=== PATIENT | female | born 1970 ===

== ENCOUNTER → 2021-11-19 08:13 | Outpatient (BNVA) | payer OTHER, SELFPAY | PROVIDERS: Visit Provider Psychiatry & Neurology Neurology | DX: G43.909 Migraine, unspecified, not intractable, without status migrainosus (principal); G47.9 Sleep disorder, unspecified | CPT/HCPCS: 99212 ==

== ENCOUNTER → 2022-03-22 09:59 | Outpatient (BNVA) | payer OTHER, SELFPAY | PROVIDERS: PCP Nurse Practitioner Family; Visit Provider Psychiatry & Neurology Neurology | DX: G43.909 Migraine, unspecified, not intractable, without status migrainosus (principal); G47.9 Sleep disorder, unspecified; G51.0 Bell's palsy; M54.2 Cervicalgia; Z79.899 Other long term (current) drug therapy | CPT/HCPCS: 99212 ==

== ENCOUNTER → 2022-06-06 08:27 | Outpatient (BNVA) | payer OTHER, SELFPAY | PROVIDERS: PCP Nurse Practitioner Family; Visit Provider Nurse Practitioner Family | DX: G51.0 Bell's palsy (principal); G43.909 Migraine, unspecified, not intractable, without status migrainosus; G47.9 Sleep disorder, unspecified; M54.2 Cervicalgia; E11.9 Type 2 diabetes mellitus without complications; I10 Essential (primary) hypertension; F32.A Depression, unspecified; Z79.899 Other long term (current) drug therapy | CPT/HCPCS: 99212 ==

== ENCOUNTER → 2022-10-23 13:58 | Outpatient (BNVA) | payer OTHER, SELFPAY | PROVIDERS: PCP Nurse Practitioner Family; Visit Provider Nurse Practitioner Family | DX: G51.0 Bell's palsy (principal); G43.909 Migraine, unspecified, not intractable, without status migrainosus; G47.9 Sleep disorder, unspecified; M54.2 Cervicalgia | CPT/HCPCS: 99212 ==

== ENCOUNTER → 2023-02-21 14:14 | Outpatient (BNVA) | payer OTHER, SELFPAY | PROVIDERS: PCP Nurse Practitioner Family; Visit Provider Nurse Practitioner Family | DX: G43.909 Migraine, unspecified, not intractable, without status migrainosus (principal); G47.9 Sleep disorder, unspecified; M54.2 Cervicalgia | CPT/HCPCS: 99212 ==

== ENCOUNTER → 2023-03-19 14:59 | Outpatient (BNVA) | payer OTHER, SELFPAY | PROVIDERS: PCP Nurse Practitioner Family; Visit Provider Nurse Practitioner Family | DX: G43.909 Migraine, unspecified, not intractable, without status migrainosus (principal); M54.2 Cervicalgia; G47.9 Sleep disorder, unspecified; Z79.899 Other long term (current) drug therapy | CPT/HCPCS: 99211 ==

== ENCOUNTER 2024-06-08 14:44 | Outpatient (AMB) | payer OTHER, SELFPAY ==
--- NOTE | 2024-06-08 15:05 | MHC.OFFVIS ---
Vital Signs 06/08/24 15:08 Height 4 ft 11 in Weight 150 lb BMI 30.3 BP 114/76 Blood Pressure Location Rt brachial Position Sitting Pulse 82 Pulse Source Pulse Oximeter Pulse Oximetry (%) 99 Oxygen Delivery Method Room Air Intake Visit Reasons: 6m F/u for Agudelo's Palsy Intake Note: Patient presents for complex migraine and bells palsy Allergies morphine Allergy (Severe, Verified 06/08/24 15:08) Numbness aspirin Adverse Reaction (Severe, Verified 06/08/24 15:08) Stomach Upset flu shut Allergy (Severe, Uncoded 06/08/24 15:08) severe swelling Medication List - Last Reconciled 06/08/24 by ALEX Thacker blood sugar diagnostic (FreeStyle Lite Strips) As directed bupropion HCl XL 300 mg PO QAM cholecalciferol (vitamin D3) 25 mcg PO DAILY citalopram 40 mg PO DAILY clopidogrel 75 mg PO DAILY cyclobenzaprine 5 mg PO BEDTIME fluticasone propion-salmeterol 250-50 mcg/dose 1 ea inhalation BID gabapentin 800 mg PO TID galcanezumab-gnlm (Emgality) 120 mg subcut ONCE 1 month hydroxyzine HCl 25 mg PO TID insulin aspart U-100 (Novolog FlexPen U-100 Insulin aspart) subcut lancets (FreeStyle Lancets) As directed lisinopril 5 mg PO DAILY lorazepam 1 mg PO DAILY PRN metoprolol succinate ER 25 mg PO DAILY omeprazole 20 mg PO BID oxycodone 0 mg PO riboflavin (vitamin B2) 400 mg PO DAILY simvastatin 40 mg PO BEDTIME sulfamethoxazole-trimethoprim 800-160 mg 1 tab PO BID topiramate 50 mg PO BID 30 days trazodone 200 mg PO BEDTIME ziprasidone HCl 40 mg PO BID HPI Comments Details: 54-yr-old female presents for Er f/u visit. Pt had [facility] ER on 06/01/24. Pt states she was having worsening headache and then left facial droop and LUE/LLE weakness. In the ER, labs, head CT, head/neck CTA were reported as unremarkable. Pt was d/c'd w/ dx of complex migraine. However pt states the ER physician told her she had [place] Palsy Stroke . Pt was confused and generally upset by the complex migraine dx, and thus pt is unable to provide full history today (history also obtained from [facility] ER and previous neuro notes here). She states she did not believe that she had migraine and was never told she had migraine. When asked if she has been taking Emgality, she said yes but again was not aware this was for migraine. Reviewed that pt's typical headache is left sided unilateral a/w photophobia, phonophobia, and nausea. Since 2013 (per previous notes), pt has had multiple bouts of left-facial droop and left-sided weakness w/wo headache, which can last 2 weeks. When she has these episodes she goes to the ER and states has been told these are stroke or agudelo's palsy recurrence. Pt states she has at least 10 headache days per month. She does not currently have a an acute headache/migraine tx. She is compliant w/ plavix, emgality, topiramate. She also endorses orthostatic lightheadedness/dizziness. She reports her HR can be > 150. She is f/b cardiology. She states she has an implanted loop monitor. [facility] Medical History Amputated right leg Amputation above knee Anxiety Asthma Agudelo's palsy Depression Diabetes HTN (hypertension) Lumbar spondylosis Surgical History H/O: hysterectomy H/O shoulder surgery H/O wrist surgery Family History Mother Diabetes Cancer Father Cancer Heart disease Diabetes Family/Other Cancer Diabetes Social History Alcohol intake: never Patient Tobacco Use Status: Never used Tobacco Review of Systems ENT Reports Normal hearing present Neuro Reports Normal hearing present Physical Exam Vital Signs: Last Vital Signs Pulse 82 06/08/24 15:08 BP 114/76 06/08/24 15:08 Pulse Ox 99 06/08/24 15:08 Oxygen Delivery Method Room Air 06/08/24 15:08 BMI result Body Mass Index 30.3 Const General: cooperative and no acute distress Orientation/consciousness: patient oriented x3 Resp Effort & Inspection: normal respiratory effort and able to speak in complete sentences Neuro Other: Photophobic. Facial symmetry. General: patient oriented x3 and moves all extremities Cranial nerves: Yes Normal facial strength present, Yes Normal hearing present and Yes Ability to bilaterally elevate shoulders present Cognition (Neuro): normal cognition Psych Appearance: grossly normal Mental Status: mental status grossly normal Speech and movement: Normal speech and movement present Assessment & Plan Assessment & Plan (1) Migraine: Code(s): G43.909 - Migraine, unspecified, not intractable, without status migrainosus Category: Medical (2) Left-sided weakness: Code(s): R53.1 - Weakness Category: Medical Plan Reviewed 06/01 [facility] ER head CT, head/neck CTA, labs- unremarkable. Reviewed that pt has had a dx of migraine since at least 2020, and that her bothersome headache attacks do appear to be c/w migraine. Reviewed the meaning of diagnosis of complex migraine, but clarified that pt's history is more suggestive of a hemiplegic migraine phenotype. I have shared resources on migraines for pt to review to gain a better understanding of migraine and possible hemiplegic migraine. Will request cardiology notes, to determine if pt is a candidate to trial a CCB, which can be useful in . In the meantime, continue Emgality, topiramate. Trial Ubrogepant (Ubrelvy) 100mg tab, 1/2 - 1 tab (50-100mg) at onset of headache, may repeat in 2 hours. Max of 2 tabs (200mg) per 24 hours. May adjunct with OTC Tylenol 650-1000mg q 4-6 hours as needed. Future considerations- brain MRI. Medications: New ubrogepant (Ubrelvy) take at onset of migraine, may repeat in 2hrs (may take w/ Tylenol) 50 - 100 mg (0.5 - 1 x 100 mg) PO ONCE 30 days PRN 16 tabs 3RF migraine headache Coding Level of Care Code Est Pt Level 4 (90434) Diagnoses Migraine G43.909 Left-sided weakness R53.1
[2024-06-08 15:08] VITALS: BP 114/76; PULSE 82; O2SAT 99; BMI 30.3
== END 2024-06-08 16:07 | disposition home or self-care (01) ==
PROVIDERS: PCP Nurse Practitioner Family; Visit Provider Nurse Practitioner Family
DX: G43.909 Migraine, unspecified, not intractable, without status migrainosus (principal); R53.1 Weakness
CPT/HCPCS: 99214

== ENCOUNTER → 2024-06-08 14:44 | Outpatient (BNVA) | payer OTHER, SELFPAY | PROVIDERS: PCP Nurse Practitioner Family; Visit Provider Nurse Practitioner Family | DX: G43.909 Migraine, unspecified, not intractable, without status migrainosus (principal); R53.1 Weakness | CPT/HCPCS: 99212 ==

== ENCOUNTER 2025-08-03 10:18 | Outpatient (AMB) | payer OTHER, SELFPAY ==
--- OUTSIDE RECORDS SUMMARY | 2024-07-06 17:19 | XMS_ITS | Encounter Summary ---
Author Organization [facility] Address [address] [place] [address] Care Team Providers Care Seconds Handler Name Role Phone Sarah Galo Primary Care Provider [phone] Encounter Details Date Type Department Care Team (Late st Contact Info) Description 07/06/2024 5:19 PM EDT Hospital Encounter TH HISTORIC ENCOUNTERS EASTERN CONVERSION ONLY Diana Avalos MD [address] [place] [phone] Social History Tobacco Use Types Packs/Day Years Used Date Smoking Tobacco: Former Cigarettes 1 28 0 10/06/1993 - 10/06/2021 Smokeless Tobacco: Never Alcohol Use Standard Drinks/Week Comments Not Currently 0 (1 standard drink = 0.6 oz pur e alcohol) Interpersonal Safety Answer Date Record ed Physical Abuse Unrecognized value 01/26/2025 Verbal Abuse Unrecognized value 01/26/2025 Comments Unknown Sex and Gender Information Value Date Recorded Sex Assigned at Female 11/04/2024 10:35 PM EST Legal Sex Female 6:13 PM EST Gender Identity Female 11/04/2024 10:35 PM EST Sexual Orientation Straight 11/04/2024 10 :35 PM EST documented as of this encounter Functional Status * Calculated C-SSRS Risk Score (Lifetime/Recent) Answer Date of Assessment Author No Risk Indicated 07/10/2025 9:52 AM EDT Eliane Bledsoe RN * Jones Suicide Severity Rating Scale (Screener/Recent Self-Report) Question Answer Date of Assessment Author 1. Wish to be (Past 1 Month) No 025 9:52 AM EDT Eliane Bledsoe, MARYURI 2. Non-Specific Active Suici ryan Thoughts (Past 1 Month) No 03/28/2025 8:16 AM JULIETT Frank Vega, MARYURI 6. Suicidal Behavior (Lifetime) No 8:16 AM EDT Angelika Vega, MARYURI documented as of this encounter Plan of Treatment Not on file documented as of this encounter Goals Goal Patient Goal Type Associated Problems Recent Progress Patient-Stated? Author <enter goal here> General Yes Nydia Verde, OT Note: Have less pain and more function left hand STGS 2 TO 3 VISITS General No Nydia Verde, OT Note: #1 NO VISIBLE EDEMA #2 PARTICIPATE IN SCAR MANAGEMENT TO HAVE NO ADHERENCE #3 IMPROVE LEFT SUPINATION FROM 50 T0 70 DEGREES TO RECEIVE ITEMS INTO PALM #4 IMPROVE LEFT WRIST EXTENSION FROM 45 TO 60 DEGREES WITH GOOD STRENGTH TO WEIGHTBEAR #5 IMPROVE LEFT THUMB EXTENSION FROM 50 TO 55 DEGREES UPON REACH #6 IMPROVE ALL DIGIT FLEXION TO THE DPC #7 IMPROVE LEFT EXHIBITION SPECIALIST FROM 5 TO AT LEAST 20 POUNDS documented as of this encounter Visit Diagnoses Not on filedocumented in this encounter Care Teams Seconds Handler Relationship Specialty Start Date End Date Sarah Galo PA [address] [place] [id number] PCP - General 03/02/24 09/16/24 documented as of this encounter
[2025-08-03 10:20] VITALS: BP 110/60; PULSE 74; O2SAT 99
--- NOTE | 2025-08-03 10:20 | A.OFFVIS_ITS ---
Vital Signs 08/03/25 10:20 Weight 131 lb BP 110/60 Blood Pressure Location Lt brachial Position Sitting Pulse 74 Pulse Source Pulse Oximeter Pulse Oximetry (%) 99 Oxygen Delivery Method Room Air Intake Visit Reasons: Follow up Intake Note: Patient presents for complex migraine and bells palsy Help Desk Specialist Required: No Accompanied by: Self / Same As Patient Allergies morphine Allergy (Severe, Verified 08/03/25 10:22) Numbness aspirin Adverse Reaction (Severe, Verified 08/03/25 10:22) Stomach Upset flu shut Allergy (Severe, Uncoded 08/03/25 10:22) severe swelling HPI Comments Details: 55-yr-old female presents for follow-up of migraine. Patient reports she is not doing well overall, she has had in the exacerbation of her eczema. She states this was being manage with oral prednisone by her PCP and Dupixent by her mac artist, but she has run out of both and needs to have follow-up appointments to have these refilled. Pt reports in early Jul, had 2 [facility] ER visits for a left temporal abscess. She was initially treated with oral Bactrim, and at f/u ER visit underwent left islam I&D after the 07/20/2025 CT Maxillofacial w Contrast showed a left temporal scalp 1.3 x 0.7 cm lesion in the left temporal scalp, representing a possible cyst versus abscess. 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 Today patient recounts the May 2024 episode of left facial drop a/w left sided weakness and severe migraine, which was similar to her previous episodes. This is her 1st severe migraine w/ profound hemiplegia since the last visit here, but her typical migraine is a/w left facial droop and mild LUE and LLE weakness. She states the profound left-sided weakness lasts a few hours, but has lasted up to 2 weeks. She states that if the weakness resolved within 3 hours, she manage this at home, however if the weakness last greater than 3 hours, her SEAM SEWER will bring her to the ER. She states she is experiencing an almost daily migraine attack. She continues to be compliant with topiramate and Emgality, which has reduce the severity of her headaches. Ubrelvy is helpful for acute migraine treatment. She reports she is compliant with bupropion, citalopram, ziprasidone, and uses trazodone nightly for sleep. She also states she is compliant with her clopidogrel, metoprolol, and lisinopril was recently added due to elevated BPs. Today her BP is low norm at 110/60. She reports she continues to have an implanted loop monitor. I did review her [facility] portal, and could not find any previous brain MRI results- possibly this is due to implanted loop recorder. 03/18/2024 CT head without contrast: * No acute intracranial findings 06/01/24, CT Brain/Neck Angiography: * Visualized intracranial arteries are patent without aneurysm, dissection, or occlusion. * Patent neck CTA. She has a strong family history of migraine, her mother would have to lay down all day. However denies of clear family history of hemiplegic type migraine. Baseline migraine: left sided unilateral a/w left facial droop, mild mild LUE and LLE weakness, photophobia, phonophobia, and nausea. 06/08/2024, HPI: 54-yr-old female presents for Er f/u visit. Pt had [facility] ER on 06/01/24. Pt states she was having worsening headache and then left facial droop and LUE/LLE weakness. In the ER, labs, head CT, head/neck CTA were reported as unremarkable. Pt was d/c'd w/ dx of complex migraine. However pt states the ER physician told her she had [place]' Palsy Stroke . Pt was confused and generally upset by the complex migraine dx, and thus pt is unable to provide full history today (history also obtained from [facility] ER and previous neuro notes here). She states she did not believe that she had migraine and was never told she had migraine. When asked if she has been taking Emgality, she said yes but again was not aware this was for migraine. Reviewed that pt's typical headache is left sided unilateral a/w photophobia, phonophobia, and nausea. Since 2013 (per previous notes), pt has had multiple bouts of left-facial droop and left-sided weakness w/wo headache, which can last 2 weeks. When she has these episodes she goes to the ER and states has been told these are stroke or agudelo's palsy recurrence. Pt states she has at least 10 headache days per month. She does not currently have a an acute headache/migraine tx. She is compliant w/ plavix, emgality, topiramate. She also endorses orthostatic lightheadedness/dizziness. She reports her HR can be > 150. She is f/b cardiology. She states she has an implanted loop monitor. [facility] Medical History Amputated right leg Amputation above knee Anxiety Asthma Agudelo's palsy Depression Diabetes HTN (hypertension) Lumbar spondylosis Surgical History H/O: hysterectomy H/O shoulder surgery H/O wrist surgery Family History Mother Diabetes Cancer Father Cancer Heart disease Diabetes Family/Other Cancer Diabetes Social History Alcohol intake: never Patient Tobacco Use Status: Never used Tobacco Physical Exam Vital Signs: Last Vital Signs Pulse 74 08/03/25 10:20 BP 110/60 08/03/25 10:20 Pulse Ox 99 08/03/25 10:20 Oxygen Delivery Method Room Air 08/03/25 10:20 Const General: cooperative and no acute distress Orientation/consciousness: patient oriented x3 Resp Effort & Inspection: normal respiratory effort and able to speak in complete sentences Neuro Other: Photophobic. Facial symmetry. Diffuse rash across her chest. Generalized itchiness. Stance easily, mild left high step, though gait overall steady. General: patient oriented x3 and moves all extremities Cranial nerves: Yes CN's II-XII intact bilaterally Cognition (Neuro): normal cognition Psych Appearance: grossly normal Mental Status: mental status grossly normal Speech and movement: Normal speech and movement present Assessment & Plan Assessment & Plan (1) Migraine: Code(s): G43.909 - Migraine, unspecified, not intractable, without status migrainosus Category: Medical Qualifiers: Migraine type: unspecified Status migrainosus presence: without status migrainosus Intractability: intractable Qualified Code(s): G43.919 - Migraine, unspecified, intractable, without status migrainosus (2) Left-sided weakness: Code(s): R53.1 - Weakness Category: Medical Plan Reviewed 06/01/25 [facility] ER head CT, head/neck CTA, labs- unremarkable. Reviewed July 10 [facility] ER visit for left temporal abscess- managed with oral Bactrim, I&D. Reviewed again that patient has a history of migraine since at least 2020. And discussed that her migraine attacks associated with left sided weakness, may be secondary to exacerbation an underlying left hemiplegia due to severe migraine, however hemiplegic migraine is also a strong possibility. On review of her previous head imaging, I do not see any evidence for a large right-sided stroke to explain her episodes of left-sided weakness. We will reach out to Cardiology to see if patient's loop monitor is MRI compatible, and if so we will arrange for brain MRI with and without contrast to see if there is any evidence for historical stroke. Additionally, I reached out to her psychiatrist, with the patient's consent, and discussed trialing patient on doxepin 10-50 mg q.h.s. and weaning patient off of trazodone. Doxepin may help reduce migraine and possible hemiplegic migraine symptoms, sleep, and possibly skin symptoms, as it is a strong mast cell inhibitor. We will also reach out to Cardiology to determine if they have any are positions to trying doxepin. Will request cardiology notes, to determine if pt is a candidate to trial a CCB, which can be useful in . In the meantime: For migraine prevention: Continue Emgality 120 mg subcutaneous injection once monthly Continue topiramate 50 mg twice a day For acute migraine treatment: Continue Ubrogepant (Ubrelvy) 100mg tab, 1/2 - 1 tab (50-100mg) at onset of headache, may repeat in 2 hours. Max of 2 tabs (200mg) per 24 hours. May adjunct with OTC Tylenol 650-1000mg q 4-6 hours as needed. Acute migraine treatment contraindications: All triptans and DHE due to HTN, h/o stroke Psychiatric provider: Brayan Ibarra- ? wean off trazodone 150mg to doxepin 10-50mg- Cardiology: Elvin in [facility] cardiology Will follow-up upon review of above and patient to follow-up in clinic in 6 months or sooner prn. Coding Level of Care Code Est Pt Level 4 (22881) Diagnoses Intractable migraine without status migrainosus, unspecified migraine type G43.919 Migraine type: unspecified Status migrainosus presence: without status migrainosus Intractability: intractable Left-sided weakness R53.1
--- OUTSIDE RECORDS SUMMARY | 2025-08-03 12:47 | XMS_ITS | Clinical Summary ---
Author Organization [facility] Address [address] [place] [address] Care Team Providers Care Coverstitch Elastic Attacher Name Role Phone Unavailable Primary Care Provider Unavailabl e Social History Tobacco Use Types Packs/Day Years Used Date Smoking Tobacco: Never Assessed Sex and Gender Information Value Date Recorded Sex Assigned at Not on file Gender Identity Not on file Sexual Orientation Not on file Job Start Date Occupation Industry Not on file Not on file Not on file Plan of Treatment Health Maintenance Due Date Last Done Comments Hepatitis C Screening 1972 Depression Screening 1984 Preventative Health Evaluation 01/01/1990 Cervical Cancer Screening (Pap Smear) 01/01/1993 Colon Cancer Screening (Colonoscopy) 01/01/2017 Breast Cancer Screening (Mammogram) 01/01/2022 Hepatitis B Vaccines (3 of 3 - 19+ 3-dose series) 03/25/2022 01/28/2022, 10/13/2020 Shingrix-Zoster Vaccine (2 o f 2) 03/06/2023 01/09/2023 COVID-19 Vaccine (3 - 2024-2 6 season) 2025 01/09/2023, 01/26/2022 Influenza Vaccine (#1) 2025 DTap / Tdap / Td (2 - Td or Tdap) 03/18/2028 03/18/2018 Pneumococcal Vaccine Aged Out 04/29/2024, 07/25/2016, 08/20/2005 No longer eligible based on patient's age to complete this topic RSV Ped < 20 months Aged Out No longe r eligible based on patient's age to complete this topic
--- OUTSIDE RECORDS SUMMARY | 2025-08-03 12:47 | XMS_ITS | Encounter Summary ---
Author Organization [facility] Address [address] [place] [address] Encounters * CPT with [facility] at [facility] on 2025-06-01 { reasonForRequest : pt has severe pain in left shoulder, diagnosed as cervical sterosis and has received no help with pain management , patientReports : ,&quo t;denies :[ Navarro Flash, circumferential navarro , Navarro reported with black tissue to the area , Open skin area after a fall with uncontrolled bleeding , Abs cess/infection with streaking noted, presence of fever or without ], chiefComplaints : Extremity Pain, Extremity Swelling , pmh : Hypertension, Amputation, Severe Persistent Mental Illness (SPMI), COPD/Asthma, Diabetes Mellitus Type 2 , allergies": Morphine, Aspirin, Ibuprofen , otherAllergies :null, painAssessment&quo t;: , visitOutcome : , additionalComments : 55 y.o female complains of Extremity Pain, Extremity Swelling\n\nPatient calling in to place a referral.\nPatient with severe left shoulder pain for 4 months.\nPatient diagnosed with cervical stenosis, and never received any pain control.\nPatient is taking tylenol and in PT, but neither of them are offering her any relief; she is unable to brush her hair, get dressed, lift her arm or move it side to side, or sleep due to the pain.\nPain does radiate to her wrist.\nShe denies any numbness or tingling.\n+inflammation, denies redness or warmth.\nShe would like to be evaluated.\n\nI provided information on the mobile health provider response time and advised the patient and/or caregiver to monitor reported signs and symptoms. I discussed the warning signs of when to seek emergency care.\n } Dispatched to the call address for the female with shoulder pain. Pt states she has had pain in herright shoulder for 4 years now. She was diagnosed with cervical stenosis and has been awaiting for 4 months for an appointment with pain management. She states she has not received the referral from her PCP yet and keeps calling them, last called today. She states she has been taking 1g PO Tylenol every 4 hours with little effect. She has been using ice and heat as well as lidocaine patches. She denies chest pain, diff breathing/sob, n/v/d, cough or other complaints. She states she used to get steroid injections but because she is a diabetic she can not get them anymore. Pt was found opening door CAOx4, airway open and patent, breathing non labored, able to speak in full sentences, -JVD, -HEENT, skin pink, warm and dry, pupils PERRL, lungs CTA, abd soft non tender/distended, afebrile, -edema/swelling. Pt was assessed. [facility] consulted. Script called into preferred pharmacy. Red flags discussed. ALL times are approx. IV_(FLUIDS_AND/OR_MEDICATION), MEDICATION_IM, ORAL_MEDICATION, WOUND_CARE, ORTHOSTATIC_VITAL_SIGNS Written by Medical [facility] on 2025-06-01
--- OUTSIDE RECORDS SUMMARY | 2025-08-03 12:47 | XMS_ITS | Continuity of Care Document ---
Author Name [facility] Address [address] [place] [id number] Organization Unknown Address [address] [place] [id number] Medications No known medications Problems No known problems
--- OUTSIDE RECORDS SUMMARY | 2025-08-03 12:47 | XMS_ITS | Clinical Summary ---
Author Organization [address] [facility] Address [address] [place] [address] Phone Care Team Providers Care [employer] Name Role Phone Emile Mauricio MD Primary Care Provider [phone] Allergies Active Allergy Reactions Criticality Noted Date Comments Aspirin 07/12/2024 Celecoxib 10/09/2022 Flu Vacc [id number](65yr Up)-Pf 10/09/2022 Facial swelling Ibuprofen Other 04/07/2013 Other reaction(s): bleed Ibuprofen-Diphenhydramine Cit 10/09/2022 Metformin Rash 12/07/2024 Morphine 10/09/2022 Inside gets numb Naproxen Other 04/07/2013 Other reaction(s): 'bleed Tramadol 10/09/2022 Medications albuterol 2.5 mg /3 mL (0.083 %) nebulizer solution USE 1 VIAL VIA NEBULIZER EVERY 6 HOURS NEEDED FOR WHEEZING OR SHORTNESS OF BREATH 10/30/19 24 Active albuterol HFA (PROAIR HFA ; PROVENTIL HFA ; VENTOLIN HFA) 90 mcg/actuation inhaler INHAEL 2 PUFFS INTO THE LUNGS EVERY FOUR HOURS NEEDED FOR WHEEZING 12/30/19 24 Active atorvastatin (LIPITOR) 40 mg tablet Take 1 tablet (40 mg total) by mouth. 10/30/19 24 Active blood-glucose sensor (Dexcom G7 Sensor) device 1 Each by Other route. 02/24/20 24 Active blood sugar diagnostic (FreeStyle Lite Strips) test strip USE TO CHECK BLOOD GLUCOSE THREE TIMES DAILY 02/23/20 24 Active dupilumab (Dupixent Pen) 300 mg/2 mL pen 08/01/20 23 Active fluticasone furoate (Arnuity Ellipta) 100 mcg/actuation blister with device inhaler Inhale 1 Puff into the lungs. 02/11/20 24 Active gabapentin (NEURONTIN) 800 mg tablet Take 1 Tablet by mouth. 02/25/20 21 Active galcanezumab-gn lm (Emgality Syringe) 120 mg/mL syringe 08/13/20 23 Active insulin aspart (NovoLOG Flexpen U-100 Insulin) 100 unit/mL (3 mL) injection pen INJECT USING S/S 4-28 UNITS THREE TIMES DAILY W/MEALS UP TO 83 UNITS DAILY 09/30/20 23 Active insulin degludec (Tresiba FlexTouch U-200) 200 unit/mL (3 mL) CONCENTRATED injection pen ADMINISTER 36 UNITS UNDER THE SKIN TWICE DAILY 02/11/20 24 Active lisinopriL (PRINIVIL,ZESTR IL) 5 mg tablet Take 1 tablet (5 mg total) by mouth. 08/14/20 21 Active citalopram (CeleXA) 40 mg tablet Take 1 tablet (40 mg total) by mouth 1 (one) time each day. Active clobetasoL (TEMOVATE) 0.05 % cream 07/23/2021 CLOBETASOL PROP 0.05% CREAM 60GM 60.00 g 2 30 APPLY TO HANDS AND FEET TWICE DAILY NEEDED FOR FLARES. Active clobetasoL (TEMOVATE) 0.05 % ointment 07/23/2021 CLOBETASOL PROP 0.05% OINT 30GM 60.00 g 2 30 Authorized by: NILO SUAZO Active clopidogreL (PLAVIX) 75 mg tablet Take 1 tablet (75 mg total) by mouth. Active cyclobenzaprine (FLEXERIL) 10 mg tablet Take 1 tablet (10 mg total) by mouth. Active fluticasone HFA (FLOVENT HFA) 110 mcg/actuation inhaler Inhale 1 Puff into the lungs. Active LORazepam (ATIVAN) 1 mg tablet Active psyllium (METAMUCIL) 0.52 gram capsule Take 2 Capsules by mouth daily. Active sodium chloride (OCEAN) 0.65 % nasal spray 1 Ryder by Nasal route as needed. Active topiramate (TOPAMAX) 25 mg tablet Take 1 tablet (25 mg total) by mouth. Active traZODone (DESYREL) 100 mg tablet Take 2 tablets (200 mg total) by mouth at bedtime. Active ziprasidone (GEODON) 40 mg capsule Active Ubrelvy 100 mg tablet 08/20/20 Active triamcinolone (KENALOG) 0.1 % cream Active tacrolimus (PROTOPIC) 0.1 % ointment APPLY TO HAND TWICE DAILY NEEDED FOR FLARES Active simvastatin (ZOCOR) 40 mg tablet Take 1 tablet (40 mg total) by mouth. Active metoprolol succinate (TOPROL-XL) 25 mg 24 hr tablet Take 1 tablet (25 mg total) by mouth 1 (one) time each day. Active metFORMIN XR (GLUCOPHAGE-XR) 500 mg 24 hr tablet Active lidocaine (LIDODERM) 5 % patch Place 1 patch on the skin. 07/30/20 24 Active buPROPion XL (WELLBUTRIN XL) 300 mg 24 hr tablet Take 1 tablet (300 mg total) by mouth 1 (one) time each day in the morning. Active naloxone (NARCAN) 4 mg/0.1 mL nasal spray Administer 1 each (4 mg total) into affected nostril(s) if needed for opioid reversal. Give 4 mg (1 spray) into one nostril. May repeat every 2-3 minutes if needed, alternating nostrils, until medical assistance becomes available. 2 each 07/20/20 25 026 Active sulfamethoxazol e-trimethoprim (BACTRIM DS,SEPTRA DS) 800-160 mg per tablet Take 1 tablet by mouth 2 (two) times a day for 10 days. 20 each 07/10/20 25 025 HYDROcodone-kyle taminophen (NORCO) 5-325 mg per tabletIndicatio ns:Scalp abscess Take 1 tablet by mouth every 6 (six) hours if needed for severe pain for up to 2 days. Max Daily Amount: 4 tablets 8 each 07/10/20 25 025 Discontinued HYDROcodone-kyle taminophen (NORCO) 5-325 mg per tabletIndicatio ns:Scalp abscess Take 1 tablet by mouth every 6 (six) hours if needed for severe pain for up to 2 days. Max Daily Amount: 4 tablets 8 each 07/10/20 25 025 doxycycline (MONODOX) 100 mg capsule Take 1 capsule (100 mg total) by mouth 2 (two) times a day for 7 days. Take with at least 8 ounces (large glass) of water, do not lie down for 30 minutes after 14 each 07/20/20 25 025 HYDROcodone-kyle taminophen (NORCO) 5-325 mg per tabletIndicatio ns:Abscess Take 1 tablet by mouth every 6 (six) hours if needed for severe pain for up to 3 days. Max Daily Amount: 4 tablets 12 tablet 07/20/20 25 025 Active Problems Problem Noted Date Diagnosed Date Flexor tenosynovitis of thumb 01/26/2025 Abscess of right hand 01/26/2025 Cervical spondylosis with radiculopathy 09/21/20 Assessment & Plan (09/21/2024 3:19 PM EST): Ms. Oliver describes about 3 years of left-sided neck pain with radiation to the left trapezius and shoulder and proximal forearm. She denies right arm symptoms. She is not a candidate for NSAIDs, Tylenol, or steroids. X-rays showed mild spondylosis with some foraminal stenosis. I would like to send her for physical therapy including cervical traction. She will follow-up with us afterwards. If she has persistent symptoms, we can order an MRI of the cervical spine at that time. Midline low back pain without sciatica 4 Trigger middle finger of left hand 03/05/2024 Bilateral shoulder pain 03/02/2024 Diabetes mellitus ([facility] V24, [facility] V28) Cervical stenosis of spine 01/22/2022 Overview (07/14/2024): 01/19/2022 Cervical Spine MRI: FINDINGS: Straightening of cervical lordosis. Normal vertebral body heights and marrow signal. Normal cord size and signal intensity. Craniocervical junction and upper thoracic cord are normal. C1-C2: No dens erosions or malalignment. Mild spurring and sclerosis about anterior aspect of the atlantoaxial joint, maximal superiorly, is much more conspicuous on prior CT. C2-C3: Minimal midline disc herniation. No central or foraminal stenosis. C3-C4: Minimal deformation of thecal sac by osteophyte disc complex. No central or foraminal stenosis. C4-C5: Bilateral uncovertebral joint hypertrophy. No central stenosis. Mild to moderate bilateral foraminal stenosis. C5-C6: Uncovertebral joint and facet hypertrophy bilaterally. Left-sided facet hypertrophy greater than right. No central stenosis. Mild to moderate right and moderate left foraminal stenosis. C6-C7: Small to moderate midline disc herniation. No central or foraminal stenosis. C7-T1: No disc herniation, central stenosis or foraminal stenosis. Impression: Multilevel degenerative changes with mild effect upon central canal and [id number] effect upon neural foramen. No evidence of cord constriction. Foraminal stenoses most notable C4-C5 and C5-C6. Pyelonephritis 01/05/2020 Stress incontinence (female) (male) 03/18/2018 Other chronic pain 11/26/2017 Overview (07/14/2024): Pt sees [facility] pain management Essential hypertension 05/24/2016 Major depressive disorder in full remission ([facility] V24) 05/01/2016 Overview (07/14/2024): Sees Psychiatry and is on medication History of total hysterectomy 10/06/2015 Overview (09/09/2024): removed uterus and cervix ([facility]) Hip pain, chronic 10/29/2013 Overview (07/14/2024): Pt see [facility] pain management Hyperlipidemia with target l ow density lipoprotein (LDL) cholesterol less than 70 mg/dL 04/11/2013 Anxiety 04/07/2013 Asthma, moderate 04/07/2013 Depression 04/07/2013 Obesity 04/07/2013 Type 2 diabetes mellitus wit hout complication, with long-term current use of insulin ([facility] V24, [facility] V28) 04/07/2013 Overview (07/14/2024): Sees Endocrinology at [facility] Mastodynia 10/13/2012 Encounters Date Type Department Care Team Description 07/19/2025 10:10 PM EDT - 07/20/2025 2:22 AM EDT [facility] Emergency [address] [place] [phone] Elda Knutson MD Abscess (Primary Dx) Discharge Disposition: Home or Self Care 07/10/2025 10:05 AM EDT - 07/10/2025 2:17 PM EDT Emergency [facility] Emergency [address] [place] [id number] Fallon Stephens MD Scalp abscess (Primary Dx) Discharge Disposition: Home or Self Care from Last 3 Months Immunizations Immunization Administration Dates Next Due HepB-CpG (Heplisav-B) 18yo and older 10/13/2020 Hepatitis B (Utygbwk-O-Tiedc , Recombivax HB-Adult) 19yo and older 01/28/2022 [employer] (ages 12 & older) CLIFF S-CoV-2 COVID-19, mRNA, LNP-S, collins-sucrose, preservative free 01/26/2022 Pneumococcal conjugate 20 va lent (Prevnar 20, PCV 20) 2mo and older 04/29/2024 Pneumococcal polysaccharide 23 valent (Pneumovax 23) 2yo and older 07/25/2016,08/20/2005 Tdap Tetanus diptheria acell ular pertussis (Boostrix; Adacel) 7yo and older 03/18/2018 Zoster recombinant (Shingrix) 19yo and older 03/2023 Surgical History Surgery Date Site/Laterality Comments HAND SURGERY 2019 Right PROCEDURE: HISTORICAL HAND SURGERY; COMMENT: trigger finger FOOT SURGERY Right PROCEDURE: HISTORICAL FOOT SURGERY; COMMENT: amputation of toe ROTATOR CUFF REPAIR 2004 Left PROCEDURE: HISTORICAL ROTATOR CUFF REPAIR HYSTERECTOMY Medical History Medical History Date Comments History of loop recorder 08/27/2021 DX:Hist ory of loop recorder Diabetes mellitus type 2, co ntrolled, with complications (CMS/HCC V24, CMS/HCC V28) DX:Diabetes mellitus type 2, controlled, with complications ([facility]) Anxiety state DX:Anxiety state Social History Tobacco Use Types Packs/Day Years Used Date Smoking Tobacco: Former Cigarettes 1 28 0 10/06/1993 - 10/06/2021 Smokeless Tobacco: Never Tobacco Cessation:Counseling Given: Not Answered Alcohol Use Standard Drinks/Week Comments Not Currently [...] Orientation Straight 11/04/2024 10 :35 PM EST Obstetrics History Last Filed Vital Signs Vital Sign Reading Time Taken Comments Blood Pressure 127/73 07/20/2025 12:26 AM EDT Pulse 78 07/20/2025 12:26 AM EDT Temperature 36.8 C (98.2 F) 07/20/2025 12:26 AM EDT Respiratory Rate 18 07/20/2025 12:26 AM EDT Oxygen Saturation 98% 07/20/2025 12:26 AM EDT Inhaled Oxygen Concentration - - Weight 59 kg (130 lb) 07/19/2025 8:12 PM EDT Height 149.9 cm (4' 11 ) 07/19/2025 8:12 PM EDT Body Mass Index 26.26 07/19/2025 8:12 PM EDT Plan of Treatment Health Maintenance Due Date Last Done Comments Colorectal Cancer Screening: Colonoscopy 1972 Diabetes: Annual Foot Exam 01/01/1982 Diabetes: Annual Retina Eye Exam 01/01/1982 Cervical Cancer Screening: Pap Smear 01/01/1993 RSV Immunization Adult Patients (1 - Risk 50-74 years 1-dose series) 01/01/2022 Hepatitis B Vaccines (3 of 3 - 19+ 3-dose series) 03/25/2022 01/28/2022, 10/13/2020 Breast Cancer Screening 09/06/2022 09/06/2020 Hepatitis C Screening 09/07/2022 Lung Cancer Screening (Low Dose CT) 09/07/2022 Medicare Annual Wellness Visit 09/07/2022 Social Influencers of Health Screening 09/07/2022 Zoster Vaccines (2 of 2) 03/06/2023 01/09/2023 Depression Screening 10/06/2024 COVID-19 Vaccine (4 - Mixed Product risk season) 2025 07/30/2024, 01/09/2023, 01/26/2022 Influenza Vaccine (#1) 2025 Diabetes: Blood Sugar Control Test (HGBA1C) 10/29/2025 04/28/2025, 01/26/2025, 11/24/2024, Additional history exists Diabetes: Annual Urine Albumin-Creatinine Ratio (uACR) 11/24/2025 11/24/2024, 03/18/2024, 03/18/2024, Additional history exists Diabetes: Annual GFR (Glomerular Filtration Rate) 07/19/2026 07/19/2025, 07/10/2025, 03/28/2025, Additional history exists Hypertension/CHF/CAD Annual BMP Blood Test 07/19/2026 07/19/2025, 07/10/2025, 03/28/2025, Additional history exists DTaP,Tdap,and Td Vaccines (2 - Td or Tdap) 03/18/2028 03/18/2018 Cholesterol Screening (Lipid Panel) 03/10/2030 03/10/2025, 03/10/2025, 11/24/2024, Additional history exists HIV Screening Completed 06/04/2022 Pneumococcal Vaccine: 50+ Years Completed 04/29/2024, 07/25/2016, 08/20/2005 HIB Vaccines Aged Out No longer eligi ble based on patient's age to complete this topic HPV Vaccines Aged Out No longer eligi ble based on patient's age to complete this topic Hepatitis A Vaccines Aged Out No long er eligible based on patient's age to complete this topic IPV Vaccines Aged Out No longer eligi ble based on patient's age to complete this topic MMR Vaccines Aged Out No longer eligi ble based on patient's age to complete this topic Meningococcal ACWY Vaccine Aged Out N o longer eligible based on patient's age to complete this topic Meningococcal B Vaccine Aged Out No l onger eligible based on patient's age to complete this topic RSV Immunization Patients Under 20 months Aged Out No longer eligible based on patient's age to complete this topic Varicella Vaccines Aged Out No longer eligible based on patient's age to complete this topic Goals Goal Patient Goal Type Associated Problems [...] FLEXION TO THE DPC #7 IMPROVE LEFT INTENSIVE CARE ANAESTHETIST FROM 5 TO AT LEAST 20 POUNDS Procedures Procedure Name Priority Date/Time Associated Diagnosis Comments CULTURE WOUND WITH GRAM STAIN STAT 07/20/2025 2:20 AM EDT HC I&D/EXCISION/BIOPSY BONE MARROW/TISSUE/TUMOR/HT ELINA/ABSC/CYST LEVEL 1 STAT 07/20/2025 1:40 AM EDT ND INCISION & DRAINAGE ABSCESS SIMPLE/SINGLE STAT 07/20/2025 1:[address] MAXILLOFACIAL W CONTRAST STAT 07/20/2025 12:07 AM EDT CBC WITH AUTO DIFFERENTIAL STAT 07/19/2025 9:08 PM EDT SEDIMENTATION RATE STAT 07/19/2025 9: 08 PM EDT COMPREHENSIVE METABOLIC PANEL STAT 07/19/2025 9:08 PM EDT CBC AND DIFFERENTIAL STAT 07/19/2025 9:[address] MAXILLOFACIAL W CONTRAST STAT 07/10/2025 12:26 PM EDT CBC WITH AUTO DIFFERENTIAL STAT 07/10/2025 10:40 AM EDT BASIC METABOLIC PANEL STAT 07/10/2025 10:40 AM EDT CBC AND DIFFERENTIAL STAT 07/10/2025 10:40 AM EDT HEMOGLOBIN A1C Add-On 01/26/2025 6:31 AM EDT URINE ALBUMIN CREATININE RATIO Routine 03/18/2024 LIPID PANEL Routine 04/30/2023 HIV SCREENING Routine 06/04/2022 KELLI SCREENING DIGITAL Routine 09/06/2020 4:55 PM EST Encounter for screening mammogram for malignant neoplasm of breast from Last 3 Months or Most Recently Relevant to Health Maintenance Results * (ABNORMAL) Culture wound with gram stain (07/20/2025 2:20 AM EDT) Culture, Wound Methicillin-Sensiti ve Staphylococcus aureus(A) ARUN 07/23/2025 9:49 AM EDT [facility] Comment: Beta-lactamase negative The organism value for this result has been updated. These results have been appended to the previously preliminary verified report. Edited result: Previously reported as Staphylococcus aureus on 07/21/2025 at 1310 EDT. Gram Stain Result Many Polymorphonuclear leukocytes(A) 07/23/2025 9:49 AM EDT [facility] Gram Stain Result No epithelial cells seen(A) 07/23/2025 9:49 AM EDT [facility] Gram Stain Result Few Gram positive cocci in clusters(A) 07/23/2025 9:49 AM T [facility] Swab Abscess morphology / Unknown Non-blood Collection / Unknown 07/20/2025 2:20 AM EDT 07/20/2025 4:02 AM EDT Narrative Organism Antibiotic Method Susceptibility Methicillin-Sensitive Staphylococcus aureus Benzylpenicillin ARUN Susceptible Comment:This is an a ppended report. These results have been appended to a previously preliminary verified report. Methicillin-Sensitive Staphylococcus aureus Oxacillin ARUN <=0.25 ug/ml: Susceptible Methicillin-Sensitive Staphylococcus aureus Gentamicin ARUN <=0.5 ug/ml: Susceptible Methicillin-Sensitive Staphylococcus aureus Ciprofloxacin ARUN <=0.5 ug/ml: Susceptible Methicillin-Sensitive Staphylococcus aureus Levofloxacin ARUN 0.25 ug/ml: Susceptible Methicillin-Sensitive Staphylococcus aureus Moxifloxacin ARUN <=0.25 ug/ml: Susceptible Methicillin-Sensitive Staphylococcus aureus Erythromycin ARUN <=0.25 ug/ml: Susceptible Methicillin-Sensitive Staphylococcus aureus Clindamycin ARUN <=0.25 ug/ml: Susceptible Methicillin-Sensitive Staphylococcus aureus Quinupristin/Dalfopristin ARUN <=0.25 ug/ml: Susceptible Methicillin-Sensitive Staphylococcus aureus Linezolid ARUN 2 ug/ml: Susceptible Methicillin-Sensitive Staphylococcus aureus Vancomycin ARUN 1 ug/ml: Susceptible Methicillin-Sensitive Staphylococcus aureus Tetracycline ARUN <=1 ug/ml: Susceptible Methicillin-Sensitive Staphylococcus aureus Rifampin ARUN <=0.5 ug/ml: Susceptible Methicillin-Sensitive Staphylococcus aureus Trimethoprim/Sulfamethoxazo le ARUN <=10 ug/ml: Susceptible Elda Knutson MD LAB MICROBIOLOGY - GENERAL ORD ERABLES Final Result [facility] ([facility]) [facility] [address] [place] [address], [place] [phone] * ND INCISION & DRAINAGE ABSCESS SIMPLE/SINGLE, HC I&D/EXCISION/BIOPSY BONE MARROW/TISSUE/TUMOR/HTOMA/ABSC/CYST LEVEL 1 (07/20/2025 1:40 AM EDT) Elda Michelle MD - 07/20/2025 1:40 AM EDT Elda Knutson MD 07/20/2025 2:17 AM Incision and Drainage Date/Time: 07/20/2025 1:40 AM Performed by: Elda Knutson MD Authorized by: Elda Knutson MD Consent: Consent obtained: Verbal Consent given by: Patient Risks, benefits, and alternatives were discussed: yes Risks discussed: Bleeding, pain, incomplete drainage and infection [place] protocol: Patient identity confirmed: Verbally with patient Location: Type: Abscess Size: 2cm diameter Location: Head Head location: Scalp Pre-procedure details: Skin preparation: Chlorhexidine Sedation: Sedation type: None Anesthesia: Anesthesia method: Local infiltration Local anesthetic: Lidocaine 1% WITH epi Procedure type: Complexity: Simple Procedure details: Incision types: Cruciate Incision depth: Subcutaneous Wound management: Probed and deloculated and irrigated with saline Drainage: Purulent and bloody Drainage amount: Moderate Wound treatment: Wound left open Packing materials: None Post-procedure details: Procedure completion: Tolerated well, no immediate complications us Elda Knutson MD IN CLINIC/BEDSIDE ORDERABLES F inal Result * CT Maxillofacial w Contrast (07/20/2025 12:07 AM EDT) Only the most recent of2 resultswithin the time period is included. Anatomical Region Laterality Modality Head and Neck Computed Tomogra phy 07/20/2025 12:3 3 AM EDT Impressions 07/20/2025 12:33 AM EDT 1.3 x 0.7 cm low-attenuation lesion in the left temporal scalp. This may represent a cyst versus abscess. Follow-up is suggested. This document has been electronically signed by: Carmen Salguero MD on 07/20/2025 00:33:20 Narrative 07/20/2025 12:33 AM EDT INDICATION: persistent L zoroastrianism lesion, bleeding, ?abscess CT maxillofacial with contrast Comparison: CT/SR - CT MAXILLOFACIAL W CONTRAST - 07/10/25 12:25 EDT Findings: No acute fractures. Temporomandibular joints are intact. Paranasal sinuses and mastoid air cells clear. Orbits normal. Visualized intracranial contents are within normal limits. No foreign bodies. 1.3 x 0.7 cm low-attenuation lesion in the left temporal scalp. This may represent a cyst versus abscess. Follow-up is suggested. Procedure Note Carmen Salguero MD - 07/20/2025 INDICATION: persistent L zoroastrianism lesion, bleeding, ?abscess CT maxillofacial with contrast Comparison: CT/SR - CT MAXILLOFACIAL W CONTRAST - 07/10/25 12:25 EDT Findings: No acute fractures. Temporomandibular joints are intact. Paranasal sinuses and mastoid air cells clear. Orbits normal. Visualized intracranial contents are within normal limits. No foreign bodies. 1.3 x 0.7 cm low-attenuation lesion in the left temporal scalp. This may represent a cyst versus abscess. Follow-up is suggested. IMPRESSION: 1.3 x 0.7 cm low-attenuation lesion in the left temporal scalp. This may represent a cyst versus abscess. Follow-up is suggested. This document has been electronically signed by: Carmen Salguero MD on 07/20/2025 00:33:20 Elda Knutson MD IMG CT PROCEDURES Final Result * (ABNORMAL) CBC auto differential (07/19/2025 9:08 PM EDT) Only the most recent of2 resultswithin the time period is included. WBC 6.1 4.8 - 10.8 K/mcL LAB HEMETOLOGY METHOD 07/19/2025 11:14 PM [facility] RBC 5.40(H) 3.80 - 4.80 M/mcL LAB HEMETOLOGY METHOD 07/19/2025 11:14 PM [facility] Hemoglobin 15.3 11.5 - 16.0 g/dL LAB HEMETOLOGY METHOD 07/19/2025 11:14 PM [facility] Hematocrit 46.0 35.0 - 47.0 % LAB HEMETOLOGY METHOD 07/19/2025 11:14 PM [facility] MCV 85.0 79.0 - 98.0 FL LAB HEMETOLOGY METHOD 07/19/2025 11:14 PM [facility] MCH 28.3 27.0 - 32.0 pcg LAB HEMETOLOGY METHOD 07/19/2025 11:14 PM [facility] MCHC 33.3 32.0 - 37.0 g/dL LAB HEMETOLOGY METHOD 07/19/2025 11:14 PM [facility] RDW 12.8 11.0 - 15.0 % LAB HEMETOLOGY METHOD 07/19/2025 11:14 PM [facility] Platelets 261 130 - 400 K/mcL LAB HEMETOLOGY METHOD 07/19/2025 11:14 PM [facility] MPV 11.5(H) 7.0 - 11.0 FL LAB HEMETOLOGY METHOD 07/19/2025 11:14 PM [facility] NRBC 0.8 <1.0 % LAB HEMETOLOGY METHOD 07/19/2025 11:14 PM [facility] NRBC Absolute 0.05 <0.10 K/mcL LAB HEMETOLOGY METHOD 07/19/2025 11:14 PM [facility] Neutrophils Relative 51.6 % LAB HEMETOLOGY METHOD 07/19/2025 11:14 PM [facility] Lymphocytes Relative 35.2 % LAB HEMETOLOGY METHOD 07/19/2025 11:14 PM [facility] Monocytes Relative 9.3 % LAB HEMETOLOGY METHOD 07/19/2025 11:14 PM [facility] Eosinophils Relative 2.0 % LAB HEMETOLOGY METHOD 07/19/2025 11:14 PM [facility] Basophils Relative 1.1 % LAB HEMETOLOGY METHOD 07/19/2025 11:14 PM [facility] Immature Granulocytes Relative 0.8 % LAB HEMETOLOGY METHOD 07/19/2025 11:14 PM [facility] Neutrophils Absolute 3.15 1.50 - 7.00 K/mcL LAB HEMETOLOGY METHOD 07/19/2025 11:14 PM [facility] Lymphocytes Absolute 2.15 1.00 - 5.00 K/mcL LAB HEMETOLOGY METHOD 07/19/2025 11:14 PM [facility] Monocytes Absolute 0.57 0.20 - 1.00 K/mcL LAB HEMETOLOGY METHOD 07/19/2025 11:14 PM [facility] Eosinophils Absolute 0.12 0.00 - 0.50 K/mcL LAB HEMETOLOGY METHOD 07/19/2025 11:14 PM EDT [facility] Basophils Absolute 0.07 0.00 - 0.20 K/[facility] LAB HEMETOLOGY METHOD 07/19/2025 11:14 PM EDT [facility] Immature Granulocytes Absolute 0.05(H) 0.00 - 0.03 K/[facility] LAB HEMETOLOGY METHOD 07/19/2025 11:14 PM EDT [facility] Blood Venous blood specimen / Unknown Venipuncture / Unknown 07/19/2025 9:08 PM EDT 07/19/2025 11:05 PM EDT Fallon HERNANDEZ LAB BLOOD ORDERABLES Fin al Result Performing Organization Address [facility]/ZIP Co de Phone Number [facility] [address] [place] [address], [place] [phone] * Sedimentation rate, automated (07/19/2025 9:08 PM EDT) Sed Rate 27 0 - 30 mm/hr LAB HEMETOLOGY METHOD 07/19/2025 11:22 PM EDT [facility] Blood Venous blood specimen / Unknown Venipuncture / Unknown 07/19/2025 9:08 PM EDT 07/19/2025 11:05 PM EDT Fallon HERNANDEZ LAB BLOOD ORDERABLES Fin al Result [facility] [address] [place] [address], [place] [phone] * (ABNORMAL) Comprehensive metabolic panel (07/19/2025 9:08 PM EDT) Sodium 135 133 - 145 mmol/L LAB CHEMISTRY METHOD 07/19/2025 11:47 PM EDT [facility] Potassium 4.3 3.5 - 5.5 mmol/L LAB CHEMISTRY METHOD 07/19/2025 11:47 PM [facility] Chloride 102 96 - 110 mmol/L LAB CHEMISTRY METHOD 07/19/2025 11:47 PM [facility] CO2 23 21 - 32 mmol/L LAB CHEMISTRY METHOD 07/19/2025 11:47 PM [facility] Anion Gap 10 3 - 11 LAB CHEMISTRY METHOD 07/19/2025 11:47 PM [facility] Glucose 343(H) 70 - 100 mg/dL LAB CHEMISTRY METHOD 07/19/2025 11:47 PM [facility] BUN 17 5 - 25 mg/dL LAB CHEMISTRY METHOD 07/19/2025 11:47 PM [facility] Creatinine 0.99 0.50 - 1.10 mg/dL LAB CHEMISTRY METHOD 07/19/2025 11:47 PM [facility] eGFR 68 >=60 mL/min/1. 73m2 LAB CHEMISTRY METHOD 07/19/2025 11:47 PM [facility] Comment:Calculation based on the Chronic Kidney Disease Epidemiology Collaboration (CKD-EPI) equation refit without adjustment for race. BUN/Creatinine Ratio 17.2 LAB CHEMISTRY METHOD 07/19/2025 11:47 PM [facility] Calcium 9.9 8.5 - 10.5 mg/dL LAB CHEMISTRY METHOD 07/19/2025 11:47 PM [facility] AST (SGOT) 11 10 - 42 unit/L LAB CHEMISTRY METHOD 07/19/2025 11:47 PM [facility] ALT (SGPT) 24 10 - 60 unit/L LAB CHEMISTRY METHOD 07/19/2025 11:47 PM [facility] Alkaline Phosphatase 65 42 - 121 unit/L LAB CHEMISTRY METHOD 07/19/2025 11:47 PM [facility] Total Protein 7.3 6.0 - 8.0 g/dL LAB CHEMISTRY METHOD 07/19/2025 11:47 PM T [facility] Albumin 4.1 3.2 - 5.0 g/dL LAB CHEMISTRY METHOD 07/19/2025 11:47 PM [facility] Total Bilirubin 0.4 0.0 - 1.4 mg/dL LAB CHEMISTRY METHOD 07/19/2025 11:47 PM [facility] Blood Venous blood specimen / Unknown Venipuncture / Unknown 07/19/2025 9:08 PM EDT 07/19/2025 11:05 PM EDT Fallon HERNANDEZ LAB BLOOD ORDERABLES Fin al Result [facility] [address] [place] [address], * (ABNORMAL) Basic Metabolic Panel (BMP) (07/10/2025 10:40 AM EDT) Sodium 137 133 - 145 mmol/L LAB CHEMISTRY METHOD 07/10/2025 11:38 AM [facility] Potassium 4.1 3.5 - 5.5 mmol/L LAB CHEMISTRY METHOD 07/10/2025 11:38 AM [facility] Comment:Hemolysis present Chloride 103 96 - 110 mmol/L LAB CHEMISTRY METHOD 07/10/2025 11:38 AM [facility] CO2 28 21 - 32 mmol/L LAB CHEMISTRY METHOD 07/10/2025 11:38 AM [facility] Anion Gap 6 3 - 11 LAB CHEMISTRY METHOD 07/10/2025 11:38 AM [facility] Glucose 271(H) 70 - 100 mg/dL LAB CHEMISTRY METHOD 07/10/2025 11:38 AM [facility] BUN 17 5 - 25 mg/dL LAB CHEMISTRY METHOD 07/10/2025 11:38 AM EDT [facility] Creatinine 0.81 0.50 - 1.10 mg/dL LAB CHEMISTRY METHOD 07/10/2025 11:38 AM EDT [facility] eGFR 87 >=60 mL/min/1. 73m2 LAB CHEMISTRY METHOD 07/10/2025 11:38 AM EDT [facility] Comment:Calculation based on the Chronic Kidney Disease Epidemiology Collaboration (CKD-EPI) equation refit without adjustment for race. BUN/Creatinine Ratio 21.0 LAB CHEMISTRY METHOD 07/10/2025 11:38 AM EDT [facility] Calcium 9.3 8.5 - 10.5 mg/dL LAB CHEMISTRY METHOD 07/10/2025 11:38 AM EDT [facility] Blood Venous blood specimen / Unknown Venipuncture / Unknown 07/10/2025 10:40 AM EDT 07/10/2025 11:08 AM EDT Fallon Stephens MD LAB BLOOD ORDERABLES Final Resul t Performing Organization Address City/[facility]/ZIP Co de Phone Number [facility] [address] [place] [address], * (ABNORMAL) Hemoglobin A1c (01/26/2025 6:31 AM EDT) Hemoglobin A1C 10.9(H) <6.5 % LAB CHEMISTRY METHOD 01/26/2025 1:43 PM EDT [facility] Mean Bld Glu Estim. 266 mg/dL LAB CHEMISTRY METHOD 01/26/2025 1:43 PM EDT [facility] Blood Venous blood specimen / Unknown 01/26/2025 6:31 AM EDT 01/26/2025 6:37 AM EDT Genny Grace NP LAB BLOOD ORDERABLES Final Res ult [facility] [address] [place] [address], * Urine Albumin Creatinine Ratio (03/18/2024) Urine Albumin Creatinine Ratio abstracted Historical Provider HEALTH MAINTENANCE Final Result * Lipid panel (04/30/2023) LDL/HDL Ratio 0 Comment:no interpretation Triglycerides 0 mg/dL Comment:no interpretation Cholesterol 0 mg/dL Comment:no interpretation HDL 0 mg/dL Comment:no interpretation LDL Cholesterol 0 mg/dL Comment:no interpretation Blood Venous blood specimen / Unknown Historical Provider MD LAB BLOOD ORDERABLES Dianna l Result * HIV Screening (06/04/2022) HIV Screening abstracted Historical Provider HEALTH MAINTENANCE Final Result * KELLI SCREENING DIGITAL (09/06/2020 4:55 PM EST) Anatomical Region Laterality Modality Mammography 09/06/2020 3:52 PM EST Narrative 09/06/2020 4:55 PM EST [facility] Diagnostic Imaging Department [address] [place] [address] Patient: SHAHEED OLIVER./Age/Sex: 1970 - 50 - F Unit#: [id number] Location/Status: SPDIMAM/REG CLI Mnemonic/Ordering Site: DIGSC/SPMAM Ordering Physician: SEVEN [employer]GHESE INSTRUCTIONAL AIDE Kelli Screening Digital - 09/06/20 - 1611 History: Bilateral breast cancer screening. Family history breast cancer affecting mother in her 50's. Previous reduction mammoplasty. Technique: Bilateral digital mammography. Conventional CC and MLO projections with tomosynthesis MLO views and computer aided detection. Comparison: [facility] and outside mammography 09/30/2017, dating back to 12/14/2012. Breast density: Mixture of fatty and fibroglandular elements, category b density. Findings: Tissue asymmetries and benign calcifications bilaterally are again evident with no concerning interval change. There is no suspicious group of microcalcification, suspicious mass, architectural distortion or suspicious change in breast density. Impression: No mammographic evidence of malignancy. BIRADS Category 2: Benign Findings, 3342F 17410, [address]307 A negative mammogram in the face of a suspicious abnormality does not exclude the possibility of malignancy nor alter the indications for biopsy. Note: Patient information entered into a reminder system with a target due date for the next mammogram; PQRI II 7025F Dictating Physician: GORDON RAMOS MD Electronically Signed by: GORODN RAMOS MD Dic Date/Time: 09/06/201652 Sign date/Time: 09/06/201654 Procedure Note Gordon Ramos MD - 09/24/2022 [facility] Diagnostic Imaging Department [address] [place] [id number] Patient: ADEOLASHAHEEDO.B./Age/Sex: 1970 - 50 - F Unit#: [id number] [facility] Mn[facility]onic/[facility]ing [facility]: [facility] Ordering Physician: SEVEN VARGHESE INSTRUCTIONAL AIDE Kelli Screening Digital - 09/06/20 - 1611 History: Bilateral breast cancer screening. Family history breastcancer affecting mother in her 50's. Previous reduction mammoplasty. Technique: Bilateral digital mammography. Conventional CC and MLOprojections with tomosynthesis MLO views and computer aided detection. Comparison: [facility] and outside mammography 09/30/2017,dating back to 12/14/2012. Breast density: Mixture of fatty and fibroglandular elements, category b density. Findings: Tissue asymmetries and benign calcifications bilaterally are again evidentwith no concerning interval change. There is no suspicious group of microcalcification, suspicious mass, architectural distortion or suspicious change in breast density. Impression: No mammographic evidence of malignancy. BIRADS Category 2: Benign Findings, 3342F 32556, 76808 A negative mammogram in the face of a suspicious abnormality does notexclude the possibility of malignancy nor alter the indications for biopsy. Note: Patient information entered into a reminder system with a targetdue date for the next mammogram; PQRI II 7025F Dictating Physician: GORDON RAMOS MD Electronically Signed by: GORDON RAMOS MD Dic Date/Time: 09/06/20 165 Sign date/Time: 09/06/20 165 Seven Varghese NP IMG BI PROCEDURES Final Result from Last 3 Months or Most Recently Relevant to Health Maintenance Insurance [facility] MEDIC[facility] Member Subscriber Plan / Payer (Ef fective 2024-Present) Name:SHAHEED OLIVER Relation to Subscriber:Self Name:Oliver Sherron. 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 Health Care Decision (hx) 12/23/2014 AD CORDERO DIRECTIVE Health Care Decision (hx) 12/23/2014 AD CORDERO DIRECTIVE Health Care Decision (hx) 12/23/2014 AD CORDERO DIRECTIVE Health Care Decision (hx) 12/23/2014 AD CORDERO DIRECTIVE Health Care Decision (hx) 12/23/2014 AD CORDERO DIRECTIVE Health Care Decision (hx) 12/23/2014 AD CORDERO DIRECTIVE Health Care Decision (hx) 12/23/2014 AD CORDERO DIRECTIVE Health Care Decision (hx) 12/23/2014 AD CORDERO DIRECTIVE Health Care Decision (hx) 12/23/2014 AD CORDERO DIRECTIVE Health Care Decision (hx) 12/23/2014 AD CORDERO DIRECTIVE Health Care Decision (hx) 12/23/2014 AD CORDERO DIRECTIVE Health Care Decision (hx) 12/23/2014 AD CORDERO DIRECTIVE Health Care Decision (hx) 12/23/2014 AD CORDERO DIRECTIVE Health Care Decision (hx) 12/23/2014 AD CORDERO DIRECTIVE Health Care Decision (hx) 12/23/2014 AD CORDERO DIRECTIVE Health Care Decision (hx) 12/23/2014 AD CORDERO DIRECTIVE Health Care Decision (hx) 12/23/2014 AD CORDERO DIRECTIVE Health Care Decision (hx) 12/23/2014 AD CORDERO DIRECTIVE Health Care Decision (hx) 12/23/2014 AD CORDERO DIRECTIVE Health Care Decision (hx) 12/23/2014 AD CORDERO DIRECTIVE Health Care Decision (hx) 12/23/2014 AD CORDERO DIRECTIVE Health Care Decision (hx) 12/23/2014 AD CORDERO DIRECTIVE Health Care Decision (hx) 12/23/2014 AD CORDERO DIRECTIVE Health Care Decision (hx) 12/23/2014 AD CORDERO DIRECTIVE Health Care Decision (hx) 12/23/2014 AD CORDERO DIRECTIVE Health Care Decision (hx) 12/23/2014 AD CORDERO DIRECTIVE Health Care Decision (hx) 12/23/2014 AD CORDERO DIRECTIVE Health Care Decision (hx) 12/23/2014 AD CORDERO DIRECTIVE Health Care Decision (hx) 12/23/2014 AD CORDERO DIRECTIVE Health Care Decision (hx) 12/23/2014 AD CORDERO DIRECTIVE Health Care Decision (hx) 12/23/2014 AD CORDERO DIRECTIVE Health Care Decision (hx) 12/23/2014 AD CORDERO DIRECTIVE Health Care Decision (hx) 12/23/2014 AD CORDERO DIRECTIVE Health Care Decision (hx) 12/23/2014 AD CORDERO DIRECTIVE Health Care Decision (hx) 12/23/2014 AD CORDERO DIRECTIVE Health Care Decision (hx) 12/23/2014 AD CORDERO DIRECTIVE Health Care Decision (hx) 12/23/2014 AD CORDERO DIRECTIVE Health Care Decision (hx) 12/23/2014 AD CORDERO DIRECTIVE Health Care Decision (hx) 12/23/2014 AD CORDERO DIRECTIVE Health Care Decision (hx) 12/23/2014 AD CORDERO DIRECTIVE Health Care Decision (hx) 12/23/2014 AD CORDERO DIRECTIVE Health Care Decision (hx) 12/23/2014 AD CORDERO DIRECTIVE Health Care Decision (hx) 12/23/2014 AD CORDERO DIRECTIVE Health Care Decision (hx) 12/23/2014 AD CORDERO DIRECTIVE Health Care Decision (hx) 12/23/2014 AD CORDERO DIRECTIVE Health Care Decision (hx) 12/23/2014 Jody Quintana ADVANCE DIRECTIVE Health Care Decision (hx) 12/19/2014 AD CORDERO DIRECTIVE Health Care Decision (hx) 12/19/2014 AD CORDERO DIRECTIVE Health Care Decision (hx) 12/19/2014 AD CORDERO DIRECTIVE Health Care Decision (hx) 12/19/2014 AD CORDERO DIRECTIVE Health Care Decision (hx) 12/19/2014 AD CORDERO DIRECTIVE Health Care Decision (hx) 12/19/2014 AD CORDERO DIRECTIVE Health Care Decision (hx) 12/19/2014 AD CORDERO DIRECTIVE Health Care Decision (hx) 12/19/2014 AD CORDERO DIRECTIVE Health Care Decision (hx) 12/19/2014 AD CORDERO DIRECTIVE Health Care Decision (hx) 12/19/2014 AD CORDERO DIRECTIVE Health Care Decision (hx) 12/19/2014 AD CORDERO DIRECTIVE Health Care Decision (hx) 12/19/2014 AD CORDERO DIRECTIVE Health Care Decision (hx) 12/19/2014 AD CORDERO DIRECTIVE Health Care Decision (hx) 12/19/2014 AD CORDERO DIRECTIVE Health Care Decision (hx) 12/19/2014 AD CORDERO DIRECTIVE Health Care Decision (hx) 12/19/2014 AD CORDERO DIRECTIVE Health Care Decision (hx) 12/19/2014 AD CORDERO DIRECTIVE Health Care Decision (hx) 12/19/2014 AD CORDERO DIRECTIVE Health Care Decision (hx) 12/19/2014 AD CORDERO DIRECTIVE Health Care Decision (hx) 12/19/2014 AD CORDERO DIRECTIVE Health Care Decision (hx) 12/19/2014 AD CORDERO DIRECTIVE Health Care Decision (hx) 12/19/2014 AD CORDERO DIRECTIVE Health Care Decision (hx) 12/19/2014 AD CORDERO DIRECTIVE Health Care Decision (hx) 12/19/2014 AD CORDERO DIRECTIVE Health Care Decision (hx) 12/19/2014 AD CORDERO DIRECTIVE Health Care Decision (hx) 12/19/2014 AD CORDERO DIRECTIVE Health Care Decision (hx) 12/19/2014 AD CORDERO DIRECTIVE Health Care Decision (hx) 12/19/2014 AD CORDERO DIRECTIVE Health Care Decision (hx) 12/19/2014 AD CORDERO DIRECTIVE Health Care Decision (hx) 12/19/2014 AD CORDERO DIRECTIVE Health Care Decision (hx) 12/19/2014 AD CORDERO DIRECTIVE Health Care Decision (hx) 12/19/2014 AD CORDERO DIRECTIVE Health Care Decision (hx) 12/19/2014 AD CORDERO DIRECTIVE Health Care Decision (hx) 12/19/2014 AD CORDERO DIRECTIVE Health Care Decision (hx) 12/19/2014 AD CORDERO DIRECTIVE Health Care Decision (hx) 12/19/2014 AD CORDERO DIRECTIVE Health Care Decision (hx) 12/19/2014 AD CORDERO DIRECTIVE Health Care Decision (hx) 12/19/2014 AD CORDERO DIRECTIVE Health Care Decision (hx) 12/19/2014 AD CORDERO DIRECTIVE Health Care Decision (hx) 12/19/2014 AD CORDERO DIRECTIVE Health Care Decision (hx) 12/19/2014 AD CORDERO DIRECTIVE Health Care Decision (hx) 12/19/2014 AD CORDERO DIRECTIVE Health Care Decision (hx) 12/19/2014 AD CORDERO DIRECTIVE Health Care Decision (hx) 12/19/2014 AD CORDERO DIRECTIVE Health Care Decision (hx) 12/19/2014 AD CORDERO DIRECTIVE Health Care Decision (hx) 12/19/2014 AD CORDERO DIRECTIVE Health Care Decision (hx) 12/19/2014 AD CORDERO DIRECTIVE Health Care Decision (hx) 12/19/2014 AD CORDERO DIRECTIVE Health Care Decision (hx) 12/19/2014 AD CORDERO DIRECTIVE Health Care Decision (hx) 12/19/2014 AD CORDERO DIRECTIVE Health Care Decision (hx) 12/19/2014 AD CORDERO DIRECTIVE Health Care Decision (hx) 12/19/2014 AD CORDERO DIRECTIVE Health Care Decision (hx) 12/19/2014 AD CORDERO DIRECTIVE Health Care Decision (hx) 12/19/2014 AD CORDERO DIRECTIVE Health Care Decision (hx) 12/19/2014 AD CORDERO DIRECTIVE Health Care Decision (hx) 12/19/2014 AD CORDERO DIRECTIVE Health Care Decision (hx) 12/19/2014 AD CORDERO DIRECTIVE Health Care Decision (hx) 12/19/2014 AD CORDERO DIRECTIVE Health Care Decision (hx) 12/19/2014 AD CORDERO DIRECTIVE Health Care Decision (hx) 12/19/2014 AD CORDERO DIRECTIVE Health Care Decision (hx) 12/19/2014 AD CORDERO DIRECTIVE Health Care Decision (hx) 12/19/2014 AD CORDERO DIRECTIVE Health Care Decision (hx) 12/19/2014 AD CORDERO DIRECTIVE Health Care Decision (hx) 12/19/2014 AD CORDERO DIRECTIVE Health Care Decision (hx) 12/19/2014 AD CORDERO DIRECTIVE Health Care Decision (hx) 12/19/2014 AD CORDERO DIRECTIVE Health Care Decision (hx) 12/19/2014 AD CORDERO DIRECTIVE Health Care Decision (hx) 12/19/2014 AD CORDERO DIRECTIVE Health Care Decision (hx) 12/19/2014 AD CORDERO DIRECTIVE Health Care Decision (hx) 12/19/2014 AD CORDERO DIRECTIVE Health Care Decision (hx) 12/19/2014 AD CORDERO DIRECTIVE Health Care Decision (hx) 12/19/2014 AD CORDERO DIRECTIVE Health Care Decision (hx) 12/19/2014 AD CORDERO DIRECTIVE Health Care Decision (hx) 12/19/2014 AD CORDERO DIRECTIVE Health Care Decision (hx) 12/19/2014 AD CORDERO DIRECTIVE Health Care Decision (hx) 12/19/2014 AD CORDERO DIRECTIVE Health Care Decision (hx) 12/19/2014 AD CORDERO DIRECTIVE Health Care Decision (hx) 12/19/2014 AD CORDERO DIRECTIVE Health Care Decision (hx) 12/19/2014 AD CORDERO DIRECTIVE Health Care Decision (hx) 12/19/2014 AD CORDERO DIRECTIVE Health Care Decision (hx) 12/19/2014 AD CORDERO DIRECTIVE Health Care Decision (hx) 12/19/2014 AD CORDERO DIRECTIVE Health Care Decision (hx) 12/19/2014 AD CORDERO DIRECTIVE Health Care Decision (hx) 12/19/2014 AD CORDERO DIRECTIVE Health Care Decision (hx) 12/19/2014 AD CORDERO DIRECTIVE Health Care Decision (hx) 12/19/2014 AD CORDERO DIRECTIVE Health Care Decision (hx) 12/19/2014 AD CORDERO DIRECTIVE Health Care Decision (hx) 12/19/2014 AD CORDERO DIRECTIVE Health Care Decision (hx) 12/19/2014 AD CORDERO DIRECTIVE Health Care Decision (hx) 12/19/2014 AD CORDERO DIRECTIVE Health Care Decision (hx) 12/19/2014 AD CORDERO DIRECTIVE Health Care Decision (hx) 12/19/2014 AD CORDERO DIRECTIVE * Full Code - Default (Latest Code Status on File) Date Activated Date Inactivated Comments 01/26/2025 4:53 AM 01/28/2025 2:02 PM This is orde r is used when code status has not been discussed with the patient, or code status is otherwise unknown/unconfirmed To update the patient's code status, place a code status order. Do not modify or discontinue any currently active code status orders. Healthcare Agents on File Name Relationship Healthcare Agent Relationsct p Communication Jody Quintana Daughter Health Care Agent Care Teams [employer] Relationship Specialty Start Date End Date Emile Mauricio MD [facility] [place] [id number] PCP - General Internal Medicine 09/17/24
== END 2025-08-03 11:14 | disposition home or self-care (01) ==
LOC: HO.HSMS 10:18
PROVIDERS: PCP Nurse Practitioner Family; Visit Provider Nurse Practitioner Family
DX: G43.919 Migraine, unspecified, intractable, without status migrainosus (principal); R53.1 Weakness
CPT/HCPCS: 99214

== ENCOUNTER → 2025-08-03 10:18 | Outpatient (BNVA) | payer OTHER, SELFPAY | PROVIDERS: PCP Nurse Practitioner Family; Visit Provider Nurse Practitioner Family | DX: G51.0 Bell's palsy (principal); R53.1 Weakness; Z79.899 Other long term (current) drug therapy | CPT/HCPCS: 99212 ==